=== PATIENT | female | born 1965 | race Two or more races ===

== ENCOUNTER 2021-10-30 22:51 | Emergency (ER) | payer OTHER ==
[~2021-10-30] VITALS: Ht 165.1 cm; Wt 108.9 kg
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
--- NOTE | 2021-10-30 23:28 | NUR ---
DR. LAW CHILEL AT PT'S BEDSIDE
[2021-10-30] MEDS ORDERED: ACETAMINOPHEN ES 500 MG TABLET ONE (23:30)
[2021-10-30] MEDS: ACETAMINOPHEN ES 500 MG TABLET PO ONE (23:37)
[2021-10-31] MEDS: CYCLOBENZAPRINE 10 MG TABLET PO ONE
--- NOTE | 2021-10-31 00:05 | NUR ---
PT RETURNED TO ER BED [address]
[2021-10-31] MEDS: CYCLOBENZAPRINE 10 MG TABLET ONE (00:08)
[2021-10-31] MEDS ORDERED: CYCL5TAB PO (01:20)
[2021-10-31] MEDS ORDERED: IBUP-1957 PO (01:20)
--- NOTE | 2021-10-31 01:34 | NUR ---
Patient discharged to home in stable condition. RX Written and verbal after care instructions given. Patient verbalizes understanding of instruction. PT ambulatory with a steady gait
[2021-10-31 01:37] VITALS: BP 186/106
== END 2021-10-31 01:37 | disposition home or self-care (01) ==
LOC: ER 22:53
DX: S13.4XXA Sprain of ligaments of cervical spine, initial encounter (principal); I10 Essential (primary) hypertension; Z79.899 Other long term (current) drug therapy; V89.2XXA Person injured in unspecified motor-vehicle accident, traffic, initial encounter; Y93.89 Activity, other specified; Y92.89 Other specified places as the place of occurrence of the external cause; Y99.8 Other external cause status
CPT/HCPCS: 70450-TC; 72125-TC; 73130-TC; 73590-TC